=== PATIENT | female | born 1955 | race Caucasian/White ===

== ENCOUNTER → 2021-01-01 | Day surgery (SDC) | payer OTHER ==
[~2021-01-01] MED LIST: ATENOLOL50 MG PO; EPINEPHRINE HCL 1:1000 1ML 1 MG/ML AMP ONE; GLIMEPIRIDE2 MG PO; JARDIANCE10 MG; LIDOCAINE 1% W/EPINEPHRINE 20 ML VIAL ONE; LISINOPRIL-HCT1 EAC2; OXYMETAZOLINE HCL 0.05% NAS 1 SPRAY BTL ONE
[2021-01-01 10:10] VITALS: BP 101/58
== END | disposition home or self-care (01) ==
LOC: OR 05:24
PROVIDERS: ATTEND Otolaryngology Otolaryngology/Facial Plastic Surgery
DX: J38.7 Other diseases of larynx (principal); R49.0 Dysphonia; R05.9 Cough, unspecified; I10 Essential (primary) hypertension; E11.9 Type 2 diabetes mellitus without complications; F17.210 Nicotine dependence, cigarettes, uncomplicated; Z88.1 Allergy status to other antibiotic agents; Z79.84 Long term (current) use of oral hypoglycemic drugs
CPT/HCPCS: 31541; 31622; 36415; 43191; 71046; 82948; 88304; 93005; J0171; 88305

== ENCOUNTER → 2021-01-22 | Day surgery (SDC) | payer OTHER ==
[~2021-01-22] MED LIST changes: +DEXAMETHASONE SOD PHOS 10 MG/1 ML VIAL ONE; -EPINEPHRINE HCL 1:1000 1ML 1 MG/ML AMP ONE; -OXYMETAZOLINE HCL 0.05% NAS 1 SPRAY BTL ONE
[2021-01-22 11:00] VITALS: BP 137/61
== END | disposition home or self-care (01) ==
LOC: OR 05:20
PROVIDERS: ATTEND Otolaryngology Otolaryngology/Facial Plastic Surgery
DX: E04.2 Nontoxic multinodular goiter (principal); J38.7 Other diseases of larynx; E11.9 Type 2 diabetes mellitus without complications; I10 Essential (primary) hypertension; F17.210 Nicotine dependence, cigarettes, uncomplicated; Z88.2 Allergy status to sulfonamides; Z79.84 Long term (current) use of oral hypoglycemic drugs
CPT/HCPCS: 36415; 60220; 82948; 88305; 88331; J1100; 88307